=== PATIENT | female | born 1980 ===

== ENCOUNTER 2025-01-16 17:13 | Observation (INO) | payer MEDICARE, OTHER | END 2025-01-19 11:54 | disposition home or self-care (01) | LOC: ER 17:13 → SURS 17:14 | PROVIDERS: ADMIT Internal Medicine | PROC: 0PSH04Z Reposition Right Radius with Internal Fixation Device, Open Approach (ICD-10-PCS; principal; 2025-01-17) | DX: S52.571A Other intraarticular fracture of lower end of right radius, initial encounter for closed fracture (principal); S52.611A Displaced fracture of right ulna styloid process, initial encounter for closed fracture; S52.132A Displaced fracture of neck of left radius, initial encounter for closed fracture; V00.841A Fall from standing electric scooter, initial encounter; I10 Essential (primary) hypertension; G40.909 Epilepsy, unspecified, not intractable, without status epilepticus; K21.9 Gastro-esophageal reflux disease without esophagitis; F32.9 Major depressive disorder, single episode, unspecified; Z88.2 Allergy status to sulfonamides; Z79.899 Other long term (current) drug therapy ==